=== PATIENT | male | born 1955 | race Native Hawaiian/Other Pacific Islander ===

== ENCOUNTER 2016-04-12 07:28 | Emergency (ER) | payer BC ==
[~2016-04-12] VITALS: Ht 182.9 cm; Wt 113.4 kg
[~2016-04-12 07:28] MED LIST: ALBU90AE13 INH; ATEN50TA36 PO; BENZ100C8 PO; BUDE1AER5 INH; FENOFIBRATE160 MG PO; IOPHEN C-NR1 ML PO; LANS30CA PO; LEVOFLOXACIN500 MG PO; LISI20TA11 PO; MEDROL DOSEPAK4 MG PO; PROVENTIL IN; SINGULAIR10 MG PO; THEO300T13 PO; TIOTCAP2 INH; VALSARTAN160 MG PO; VENLAFAXINE37.5 ER PO; Z-PAK PO
[2016-04-12 07:45] VITALS: TEMP 98.9
[2016-04-12 07:58] LABS: PLATELET COUNT 265 K/uL (142-355)
[2016-04-12 08:21] LABS: POTASSIUM 3.9 mmol/L (3.6-5.2); SODIUM 141 mmol/L (136-145)
[2016-04-12] MEDS ORDERED: BENZ100C8 PO (09:29)
[2016-04-12] MEDS ORDERED: CLINDAMYCIN300 MG PO (09:29)
[2016-04-12 09:33] VITALS: BP 123/90
== END 2016-04-12 09:33 | disposition home or self-care (01) ==
LOC: ED 07:28
DX: J06.9 Acute upper respiratory infection, unspecified (principal); R06.09 Other forms of dyspnea; J20.9 Acute bronchitis, unspecified
CPT/HCPCS: 36415; 80053; 85027; 87070; 87205; 99283

== ENCOUNTER 2016-04-21 07:19 | Outpatient (CLI) | payer BC ==
[~2016-04-21 07:19] MED LIST changes: +CLINDAMYCIN300 MG PO
== END 2016-04-21 20:01 | disposition home or self-care (01) ==
LOC: CT 07:19
DX: J98.11 Atelectasis (principal)
CPT/HCPCS: Q9963

== ENCOUNTER 2016-04-30 14:37 | Outpatient (CLI) | payer BC ==
[2016-04-30 15:01] LABS: PLATELET COUNT 289 K/uL (142-355)
== END 2016-04-30 20:05 | disposition home or self-care (01) ==
LOC: LABW 14:37
PROVIDERS: Internal Medicine Sleep Medicine
DX: J45.909 Unspecified asthma, uncomplicated (principal)
CPT/HCPCS: 36415; 82785; 85027; 86003

== ENCOUNTER 2016-07-19 00:21 | Emergency (ER) | payer BC ==
[~2016-07-19] VITALS: Ht 182.9 cm; Wt 108.9 kg
[2016-07-19] MEDS ORDERED: DALIRESP500 MC1 OR (00:45)
[2016-07-19 01:10] LABS: PLATELET COUNT 273 K/uL (142-355)
[2016-07-19 01:18] LABS: POTASSIUM 4.1 mmol/L (3.6-5.2); SODIUM 143 mmol/L (136-145)
[2016-07-19 02:24] VITALS: BP 135/75; TEMP 98.3
== END 2016-07-19 02:31 | disposition home or self-care (01) ==
LOC: ED 00:21
DX: M10.9 Gout, unspecified (principal)
CPT/HCPCS: 80053; 84550; 85027; 96372; 99283; J1885

== ENCOUNTER 2018-01-06 07:42 | Outpatient (CLI) | payer BC ==
[~2018-01-06 07:42] MED LIST changes: +DALIRESP500 MC1 OR
[2018-01-06 08:26] LABS: PLATELET COUNT 273 K/uL (142-355)
[2018-01-06 08:55] LABS: POTASSIUM 4.1 mmol/L (3.6-5.2)
== END 2018-01-06 20:13 | disposition home or self-care (01) ==
LOC: LABW 07:42
PROVIDERS: Internal Medicine
DX: Z00.00 Encounter for general adult medical examination without abnormal findings (principal); Z79.899 Other long term (current) drug therapy; I10 Essential (primary) hypertension; Z12.5 Encounter for screening for malignant neoplasm of prostate
CPT/HCPCS: 36415; 80053; 80061; 81000; 84153; 84443; 85027

== ENCOUNTER 2018-01-31 07:21 | Day surgery (SDC) | payer BC ==
[2018-01-31 08:34] LABS: PLATELET COUNT 249 K/uL (142-355)
[2018-01-31 08:43] LABS: POTASSIUM 3.5 mmol/L (3.6-5.2)
== END 2018-01-31 11:25 | disposition home or self-care (01) ==
LOC: OR 07:21
PROVIDERS: Student in an Organized Health Care Education/Training Program
PROC: 0DBK8ZZ Excision of Ascending Colon, Via Natural or Artificial Opening Endoscopic (ICD-10-PCS; principal; 2018-01-31)
PROC: 0DBL8ZZ Excision of Transverse Colon, Via Natural or Artificial Opening Endoscopic (ICD-10-PCS; 2018-01-31)
PROC: 0DBP8ZZ Excision of Rectum, Via Natural or Artificial Opening Endoscopic (ICD-10-PCS; 2018-01-31)
DX: D12.2 Benign neoplasm of ascending colon (principal); D12.3 Benign neoplasm of transverse colon; K62.1 Rectal polyp; K64.8 Other hemorrhoids; Z86.010 Personal history of colon polyps; Z12.11 Encounter for screening for malignant neoplasm of colon
CPT/HCPCS: 80053; 85027

== ENCOUNTER 2019-01-11 09:04 | Outpatient (CLI) | payer BC | END 2019-01-11 23:28 | disposition home or self-care (01) | LOC: CT 09:04 | DX: Z12.2 Encounter for screening for malignant neoplasm of respiratory organs (principal); Z13.6 Encounter for screening for cardiovascular disorders | CPT/HCPCS: G0297-TC ==

== ENCOUNTER 2021-04-09 05:31 | Emergency (ER) | payer BC ==
[~2021-04-09] VITALS: Ht 180.3 cm; Wt 109.8 kg
[2021-04-09 05:40] VITALS: TEMP 99.4
[2021-04-09 06:12] LABS: PLATELET COUNT 250 K/uL (142-355)
[2021-04-09 07:36] VITALS: BP 126/84
== END 2021-04-09 07:37 | disposition home or self-care (01) ==
LOC: ED 05:31
PROVIDERS: Emergency Medicine
DX: K52.89 Other specified noninfective gastroenteritis and colitis (principal); I49.3 Ventricular premature depolarization
CPT/HCPCS: 80053; 80320; 82150; 83690; 84484; 85027; 93005; 96360; 96374; 96375; 99284; J2405

== ENCOUNTER 2021-04-15 09:26 | Outpatient (CLI) | payer BC ==
[2021-04-15 09:49] LABS: PLATELET COUNT 238 K/uL (142-355)
[2021-04-15 09:59] LABS: POTASSIUM 3.9 mmol/L (3.6-5.2)
== END 2021-04-15 18:47 | disposition home or self-care (01) ==
LOC: LABW 09:26
PROVIDERS: ATTEND Internal Medicine
DX: D72.829 Elevated white blood cell count, unspecified (principal); R19.7 Diarrhea, unspecified
CPT/HCPCS: 36415; 80053; 83630; 85027; 87015; 87045; 87206; 87324; 87328; 87329; 87449; 87507; 87899

== ENCOUNTER 2021-12-06 11:57 | Emergency (ER) | payer BC ==
[~2021-12-06] VITALS: Ht 180.3 cm; Wt 109.8 kg
[2021-12-06 12:08] VITALS: BP 153/102; TEMP 98.9
[2021-12-06] MEDS ORDERED: ALBUTEROL0.083 % INH (12:24)
[2021-12-06] MEDS ORDERED: ALBU90AE13 INH (12:24)
== END 2021-12-06 13:50 | disposition home or self-care (01) ==
LOC: ED 11:57
DX: S82.831A Other fracture of upper and lower end of right fibula, initial encounter for closed fracture (principal); X50.1XXA Overexertion from prolonged static or awkward postures, initial encounter; Y93.K1 Activity, walking an animal; Y92.89 Other specified places as the place of occurrence of the external cause
CPT/HCPCS: 99283

== ENCOUNTER 2022-04-30 08:10 | Outpatient (CLI) | payer BC ==
[~2022-04-30 08:10] MED LIST changes: +ALBUTEROL0.083 % INH
[2022-04-30 08:41] LABS: PLATELET COUNT 261 K/uL (142-355)
== END 2022-04-30 19:21 | disposition home or self-care (01) ==
LOC: LABW 08:10
PROVIDERS: ATTEND Internal Medicine
DX: I10 Essential (primary) hypertension (principal); E79.0 Hyperuricemia without signs of inflammatory arthritis and tophaceous disease
CPT/HCPCS: 36415; 80053; 80061; 81002; 84439; 84443; 84550; 85027

== ENCOUNTER 2022-08-23 10:49 | Outpatient (CLI) | payer BC | END 2022-08-23 19:23 | disposition home or self-care (01) | LOC: RAD 10:49 | PROVIDERS: ATTEND Internal Medicine | DX: M54.59 Other low back pain (principal) ==